=== PATIENT | female | born 1980 | race Hispanic/Latino ===

== ENCOUNTER 2018-10-15 10:00 | Outpatient (CLI) | payer MEDICAID, OTHER ==
[2018-10-15 11:51] LABS: #Basophils 0.1 thou/uL (0.0-0.2); #Eosinphils 0.2 thou/uL (0.0-0.7); #Lymphocytes 1.3 thou/uL (1.20-3.40); #Monocytes 0.4 thou/uL (0.11-0.59); #Neutrophils 7.4 thou/uL (1.40-6.50); %Basophils 0.6 % (0.0-1.0); %Eosinophils 1.8 % (0.0-10.0); %Lymphocytes 13.8 % (21.0-51.0); %Monocytes 4.7 % (0.0-10.0); %Neutrophils 79.1 % (42.0-75.0); Hemoglobin 10.2 g/dL (12.0-16.0); Mean Corpuscular HGB CONC 32.6 g/dL (32.0-36.0); Mean Corpuscular Hemoglobin 27.4 pg (27.0-31.0); Mean Corpuscular Volume 84.2 fL (78.0-98.0); Mean Platelet Volume 8.9 fL (7.4-10.4); Platelet Count 180 thou/uL (130-400); Red Blood Cell (RBC) Count 3.72 mill/uL (4.20-5.40); White Blood Cell (WBC) Count 9.4 thou/uL (4.8-10.8)
[2018-10-15 17:34] LABS: HIV (1/2) Antibody/Antigen Non-Reactive (NonReactive); HIV 1/2 INDEX 0.18 S/CO (<1.00); Syphilis Antibody Nonreactive (Nonreactive); Syphilis Antibody Index 0.02 S/CO (<1.00 Non-Reactive)
== END 2018-10-15 10:01 | disposition home or self-care (01) ==
LOC: MADLABBHPM 10:00
PROVIDERS: ATTEND Family Medicine
DX: O09.523 Supervision of elderly multigravida, third trimester (principal)
CPT/HCPCS: 36415; 82950; 85025; 86780; 87389

== ENCOUNTER 2018-11-01 08:38 | Outpatient (CLI) | payer MEDICAID | END 2018-11-01 08:39 | disposition home or self-care (01) | LOC: MADLABBHPM 08:38 | PROVIDERS: ATTEND Family Medicine | DX: O09.523 Supervision of elderly multigravida, third trimester (principal) | CPT/HCPCS: 36415; 82951; 82952 ==